=== PATIENT | male | born 1965 | race African-American/Black ===

== ENCOUNTER 2022-10-07 22:37 | Observation (INO) | payer BC ==
[~2022-10-07 22:37] MED LIST: Iopamidol-370 76% 500 ML MDV (1 ML CHARGE) ONE
[2022-10-07 23:07] LABS: #Monocytes 0.4 thou/uL (0.11-0.59); %Basophils 0.2 % (0.0-1.0); %Eosinophils 0.2 % (0.0-10.0); %Lymphocytes 18.3 % (21.0-51.0); %Neutrophils 77.1 % (42.0-75.0); Hematocrit 46.8 % (42.0-52.0); Hemoglobin 15.4 g/dL (14.0-18.0); Mean Corpuscular HGB CONC 32.9 g/dL (32.0-36.0); Mean Corpuscular Hemoglobin 32.3 pg (27.0-31.0); Mean Corpuscular Volume 98.1 fl (78.0-98.0); Mean Platelet Volume 9.6 fL (7.4-10.4); Platelet Count 165 10x3/uL (130-400); RBC Distribution Width 12.7 % (11.5-14.5); Red Blood Cell (RBC) Count 4.77 mill/uL (4.70-6.10); White Blood Cell (WBC) Count 9.1 10x3/uL (4.8-10.8)
[2022-10-07] MEDS ORDERED: levETIRAcetam 500 MG/5 ML VIAL ONE (23:11)
[2022-10-07] MEDS ORDERED: dilTIAZem 25 MG/5 ML VIAL ONE (23:11)
[2022-10-07] MEDS ORDERED: dilTIAZem 125 MG/25 ML SDV ONE (23:11)
[2022-10-07 23:34] LABS: ALT (SGPT) 20 U/L (8-55); AST (SGOT) 20 U/L (5-34); Albumin 4.9 g/dL (3.5-5.0); Alkaline Phosphatase 74 U/L (40-110); Anion Gap 23 mmol/L (10-20); BUN (Urea Nitrogen) 17 mg/dL (8.4-25.7); Bilirubin, Total 0.8 mg/dL (0.2-1.2); Calc. Creatinine Clearance 0 mL/min (70-130); Calcium 9.7 mg/dL (7.8-10.44); Carbon Dioxide 14 mmol/L (22-29); Chloride 107 mmol/L (98-107); Estimated GFR 47; Globulin 3.3 g/dL (2.4-3.5); Glucose 161 mg/dL (70-105); Potassium 3.4 mmol/L (3.5-5.1); Protein, Total 8.2 g/dL (6.0-8.3); Sodium 141 mmol/L (136-145)
[2022-10-07 23:43] LABS: Acetaminophen Less than 10 mcg/mL (10.0-30.0); Alcohol Less than 10.0 mg/dL (Less than 10); Magnesium 1.7 mg/dL (1.6-2.6); Salicylate Less than 8.0 mg/dL (15.0-30.0)
[2022-10-07 23:44] LABS: INR-International Normal Ratio 1.1; Prothrombin Time 14.9 sec (12.0-14.7)
[2022-10-07 23:48] LABS: Troponin I 0.141 ng/mL (< 0.028)
[2022-10-08] MEDS ORDERED: HumaLOG 300 UNITS/3 ML VIAL SC PRN ×2 (02:25)
[2022-10-08] MEDS ORDERED: Acetaminophen 650 MG Suppository PR PRN (02:25)
[2022-10-08] MEDS ORDERED: Dextrose 50% Abboject 50 ML SYRINGE SLOW IVP PRN (02:25)
[2022-10-08] MEDS ORDERED: Glucagon 1 MG/ML KIT IM PRN (02:25)
[2022-10-08] MEDS ORDERED: Acetaminophen 325 MG TAB PO PRN (02:25)
[2022-10-08] MEDS ORDERED: Ondansetron ODT 4 MG TAB PO PRN (02:25)
[2022-10-08] MEDS ORDERED: Dextrose 5% in Water 1,000 ML IV PRN (02:25)
[2022-10-08] MEDS ORDERED: Ondansetron PF 4 MG/2 ML Vial IVP PRN (02:25)
[2022-10-08] MEDS ORDERED: Lorazepam 2 MG/ML VIAL SLOW IVP PRN (02:25)
[2022-10-08 03:13] LABS: Troponin I 0.137 ng/mL (< 0.028)
[2022-10-08] MEDS: Sodium Chloride 0.9% 1,000 ML IV SCH ×2 (04:03→13:16)
[2022-10-08 04:51] LABS: #Monocytes 0.4 thou/uL (0.11-0.59); #Neutrophils 5.9 thou/uL (1.40-6.50); %Basophils 0.4 % (0.0-1.0); %Eosinophils 0.4 % (0.0-10.0); %Lymphocytes 16.8 % (21.0-51.0); %Monocytes 5.4 % (0.0-10.0); %Neutrophils 76.7 % (42.0-75.0); Hematocrit 43.7 % (42.0-52.0); Hemoglobin 14.5 g/dL (14.0-18.0); Mean Corpuscular HGB CONC 33.2 g/dL (32.0-36.0); Mean Corpuscular Hemoglobin 31.8 pg (27.0-31.0); Mean Corpuscular Volume 95.8 fl (78.0-98.0); Mean Platelet Volume 9.7 fL (7.4-10.4); Platelet Count 151 10x3/uL (130-400); RBC Distribution Width 12.8 % (11.5-14.5); Red Blood Cell (RBC) Count 4.56 mill/uL (4.70-6.10); White Blood Cell (WBC) Count 7.7 10x3/uL (4.8-10.8)
[2022-10-08 05:24] LABS: Anion Gap 12 mmol/L (10-20); BUN (Urea Nitrogen) 14 mg/dL (8.4-25.7); Calc. Creatinine Clearance 0 mL/min (70-130); Calcium 8.9 mg/dL (7.8-10.44); Carbon Dioxide 22 mmol/L (22-29); Chloride 108 mmol/L (98-107); Estimated GFR 70; Glucose 93 mg/dL (70-105); Magnesium 1.9 mg/dL (1.6-2.6); Potassium 3.4 mmol/L (3.5-5.1); Sodium 139 mmol/L (136-145)
[2022-10-08 05:47] LABS: Troponin I 0.138 ng/mL (< 0.028)
[2022-10-08 06:25] VITALS: BMI 23.5
[2022-10-08] MEDS ORDERED: Electrolyte Replacement Protocol 1 EACH FS SCH (07:45)
[2022-10-08] MEDS ORDERED: Potassium Chloride 20 MEQ TAB PO SCH (08:00)
[2022-10-08] MEDS ORDERED: Magnevist 469MG/ML 20 ML VIAL ONE (08:58)
[2022-10-08] MEDS ORDERED: levETIRAcetam 500 MG/5 ML VIAL SLOW IVP SCH (09:00)
[2022-10-08] MEDS ORDERED: Magnesium 2 GM/50 ML(in water) 2 GM in Premix Bag 1 BAG IVPB SCH (09:00)
[2022-10-08 15:39] VITALS: BP 113/80; TEMP 97.8
== END 2022-10-08 17:45 | disposition home or self-care (01) ==
LOC: ERS 22:37 → 2SE 10-08 02:15
PROVIDERS: ADMIT Student in an Organized Health Care Education/Training Program; ATTEND Internal Medicine
DX: R77.8 Other specified abnormalities of plasma proteins (principal); G40.909 Epilepsy, unspecified, not intractable, without status epilepticus; E11.9 Type 2 diabetes mellitus without complications; I69.320 Aphasia following cerebral infarction; F17.210 Nicotine dependence, cigarettes, uncomplicated; N17.9 Acute kidney failure, unspecified; I12.9 Hypertensive chronic kidney disease with stage 1 through stage 4 chronic kidney disease, or unspecified chronic kidney disease; I48.91 Unspecified atrial fibrillation; N18.2 Chronic kidney disease, stage 2 (mild); E11.22 Type 2 diabetes mellitus with diabetic chronic kidney disease; E87.6 Hypokalemia; Z79.01 Long term (current) use of anticoagulants; Z91.014 Allergy to mammalian meats; Z79.899 Other long term (current) drug therapy
CPT/HCPCS: 36415; 36416; 70496; 70498; 70553; 71045; 80048; 80053; 80307; 83735; 84443; 84484; 85025; 85610; 85730; 93005; 94760; 96375; 96376; A9579; G0378; J1815; J1953; J3475; J7050; Q9967

== ENCOUNTER 2023-09-05 12:21 | Inpatient (IN) | payer BC, SELFPAY ==
[2023-09-05 13:55] LABS: #Basophils Less than 0.03 10x3/uL (0.0-0.2); %Basophils 0.2 % (0.0-1.0); %Eosinophils 2.4 % (0.0-10.0); %Lymphocytes 28.6 % (21.0-51.0); %Monocytes 8.2 % (0.0-10.0); %Neutrophils 60.4 % (42.0-75.0); Hematocrit 39.3 % (42.0-52.0); Hemoglobin 13.1 g/dL (14.0-18.0); Mean Corpuscular HGB CONC 33.3 g/dL (32.0-36.0); Mean Corpuscular Hemoglobin 33.4 pg (27.0-31.0); Mean Corpuscular Volume 100.3 fL (78.0-98.0); Mean Platelet Volume 9.4 fL (7.4-10.4); Platelet Count 177 10x3/uL (130-400); RBC Distribution Width 14.5 % (11.5-14.5); Red Blood Cell (RBC) Count 3.92 mill/uL (4.70-6.10)
[2023-09-05 14:12] LABS: ALT (SGPT) 18 U/L (8-55); AST (SGOT) 16 U/L (5-34); Albumin 4.1 g/dL (3.5-5.0); Alkaline Phosphatase 62 U/L (40-110); Anion Gap 14 mmol/L (10-20); BUN (Urea Nitrogen) 14 mg/dL (8.4-25.7); Bilirubin, Total 0.5 mg/dL (0.2-1.2); Calc. Creatinine Clearance 0 mL/min (70-130); Calcium 9.2 mg/dL (7.8-10.44); Carbon Dioxide 21 mmol/L (22-29); Chloride 111 mmol/L (98-107); Estimated GFR 72; Globulin 3.2 g/dL (2.4-3.5); Glucose 152 mg/dL (70-105); Potassium 3.3 mmol/L (3.5-5.1); Protein, Total 7.3 g/dL (6.0-8.3); Sodium 143 mmol/L (136-145)
[2023-09-05 14:19] LABS: Troponin I 0.153 ng/mL (< 0.028)
[2023-09-05] MEDS ORDERED: Aspirin Chewable 81 MG TAB ONE (15:28)
[2023-09-05] MEDS ORDERED: Furosemide 40 MG (4 mL) VIAL ONE (16:07)
[2023-09-05] MEDS ORDERED: Acetaminophen 650 MG Suppository PR PRN (16:14)
[2023-09-05] MEDS ORDERED: Senokot S 8.6-50 MG TAB PO PRN (16:14)
[2023-09-05] MEDS ORDERED: Ondansetron PF 4 MG/2 ML Vial IVP PRN (16:14)
[2023-09-05] MEDS ORDERED: Ondansetron ODT 4 MG TAB PO PRN (16:14)
[2023-09-05] MEDS ORDERED: Acetaminophen 325 MG TAB PO PRN (16:14)
[2023-09-05 17:21] LABS: Magnesium 1.5 mg/dL (1.6-2.6); Phosphorus 3.1 mg/dL (2.3-4.7)
[2023-09-05 17:25] LABS: Troponin I 0.155 ng/mL (< 0.028)
[2023-09-05 18:02] VITALS: BMI 25.0
[2023-09-05] MEDS: Potassium Chloride 20 MEQ TAB PO SCH (20:58)
[2023-09-05] MEDS: dilTIAZem CD 120 MG CAP PO SCH (20:58)
[2023-09-05] MEDS: Doxepin HCl 25 MG CAP PO SCH (20:59)
[2023-09-05] MEDS: Divalproex Sodium 250 MG ER.TAB PO SCH (20:59)
[2023-09-05] MEDS: Atorvastatin Calcium 40 MG TAB PO SCH (20:59)
[2023-09-05] MEDS: Apixaban 5 MG TAB PO SCH (20:59)
[2023-09-05] MEDS: Metoprolol Tartrate 25 MG TAB PO SCH (20:59)
[2023-09-05] MEDS: Famotidine 20 MG TAB PO SCH (20:59)
[2023-09-05] MEDS: levETIRAcetam 500 MG TAB PO SCH (21:00)
[2023-09-05] MEDS: Nicotine 21 MG PATCH TD PRN (21:26)
[2023-09-06 05:20] LABS: #Basophils Less than 0.03 10x3/uL (0.0-0.2); %Basophils 0.2 % (0.0-1.0); %Lymphocytes 42.2 % (21.0-51.0); %Monocytes 9.6 % (0.0-10.0); %Neutrophils 44.8 % (42.0-75.0); Hematocrit 34.3 % (42.0-52.0); Hemoglobin 11.6 g/dL (14.0-18.0); Mean Corpuscular HGB CONC 33.8 g/dL (32.0-36.0); Mean Corpuscular Hemoglobin 33.4 pg (27.0-31.0); Mean Corpuscular Volume 98.8 fL (78.0-98.0); Mean Platelet Volume 9.2 fL (7.4-10.4); Platelet Count 152 10x3/uL (130-400); RBC Distribution Width 14.3 % (11.5-14.5); Red Blood Cell (RBC) Count 3.47 mill/uL (4.70-6.10)
[2023-09-06] MEDS: Furosemide 100 MG (10 mL) VIAL SLOW IVP SCH (05:31)
[2023-09-06 05:38] LABS: ALT (SGPT) 15 U/L (8-55); AST (SGOT) 12 U/L (5-34); Albumin 3.4 g/dL (3.5-5.0); Alkaline Phosphatase 48 U/L (40-110); Anion Gap 15 mmol/L (10-20); BUN (Urea Nitrogen) 13 mg/dL (8.4-25.7); Bilirubin, Total 0.6 mg/dL (0.2-1.2); Calc. Creatinine Clearance 84 mL/min (70-130); Calcium 8.6 mg/dL (7.8-10.44); Carbon Dioxide 21 mmol/L (22-29); Chloride 113 mmol/L (98-107); Estimated GFR 86; Globulin 2.3 g/dL (2.4-3.5); Glucose 95 mg/dL (70-105); Potassium 3.6 mmol/L (3.5-5.1); Protein, Total 5.7 g/dL (6.0-8.3); Sodium 145 mmol/L (136-145)
[2023-09-06] MEDS ORDERED: Enoxaparin 40 MG (0.4 mL) SYRINGE SC SCH (09:00)
[2023-09-06 09:35] LABS: Magnesium 1.4 mg/dL (1.6-2.6)
[2023-09-06] MEDS: Magnesium Sulfate In Water 4 GM in Premix 1 BAG IVPB SCH (11:34)
[2023-09-06] MEDS: Potassium Chloride 20 MEQ TAB PO SCH (20:21)
[2023-09-07 04:17] LABS: #Basophils Less than 0.03 10x3/uL (0.0-0.2); %Basophils 0.2 % (0.0-1.0); %Eosinophils 2.9 % (0.0-10.0); %Lymphocytes 43.2 % (21.0-51.0); %Monocytes 9.5 % (0.0-10.0); Hematocrit 36.1 % (42.0-52.0); Hemoglobin 12.5 g/dL (14.0-18.0); Mean Corpuscular HGB CONC 34.6 g/dL (32.0-36.0); Mean Corpuscular Hemoglobin 33.4 pg (27.0-31.0); Mean Corpuscular Volume 96.5 fL (78.0-98.0); Mean Platelet Volume 9.3 fL (7.4-10.4); Platelet Count 173 10x3/uL (130-400); RBC Distribution Width 14.3 % (11.5-14.5); Red Blood Cell (RBC) Count 3.74 mill/uL (4.70-6.10)
[2023-09-07 04:45] LABS: Anion Gap 13 mmol/L (10-20); BUN (Urea Nitrogen) 15 mg/dL (8.4-25.7); Calc. Creatinine Clearance 70 mL/min (70-130); Calcium 8.6 mg/dL (7.8-10.44); Carbon Dioxide 24 mmol/L (22-29); Chloride 110 mmol/L (98-107); Estimated GFR 69; Glucose 155 mg/dL (70-105); Magnesium 2.1 mg/dL (1.6-2.6); Potassium 3.6 mmol/L (3.5-5.1); Sodium 143 mmol/L (136-145)
[2023-09-07] MEDS: Potassium Chloride 20 MEQ TAB PO SCH (08:38)
[2023-09-07] MEDS: Furosemide 40 MG TAB PO SCH (08:40)
[2023-09-07 15:47] VITALS: TEMP 96.3
[2023-09-07 19:07] VITALS: BP 113/67
[2023-09-07] MEDS ORDERED: levETIRAcetam 500 MG TAB PO SCH (21:00)
[2023-09-07] MEDS ORDERED: Zonisamide 100 MG CAP PO SCH (21:00)
[2023-09-07] MEDS ORDERED: Lacosamide 50 mg Tablet PO SCH (21:00)
[2023-09-08] MEDS ORDERED: Aspirin 81 mg Enteric Coated Tablet PO SCH (09:00)
== END 2023-09-07 18:40 | disposition home or self-care (01) | DRG 293 ==
LOC: ERS 12:21 → SUATTDRO 12:21 → ERHOLD 16:16 → 2NO 17:22
PROVIDERS: ADMIT Family Medicine; ATTEND Internal Medicine
DX: I50.43 Acute on chronic combined systolic (congestive) and diastolic (congestive) heart failure (principal); R79.89 Other specified abnormal findings of blood chemistry; E11.9 Type 2 diabetes mellitus without complications; G47.33 Obstructive sleep apnea (adult) (pediatric); G40.909 Epilepsy, unspecified, not intractable, without status epilepticus; I48.91 Unspecified atrial fibrillation; E83.42 Hypomagnesemia; E87.6 Hypokalemia; Z79.84 Long term (current) use of oral hypoglycemic drugs; Z91.014 Allergy to mammalian meats; Z79.899 Other long term (current) drug therapy
CPT/HCPCS: 36415; 71045; 80048; 80053; 83735; 83880; 84100; 84484; 85025; 93005; J1940; J3475

== ENCOUNTER 2023-09-08 22:59 | Inpatient (IN) | payer OTHER, SELFPAY ==
[2023-09-08 23:42] LABS: #Basophils Less than 0.03 10x3/uL (0.0-0.2); %Basophils 0.3 % (0.0-1.0); %Eosinophils 2.4 % (0.0-10.0); %Lymphocytes 25.8 % (21.0-51.0); %Monocytes 7.6 % (0.0-10.0); %Neutrophils 63.7 % (42.0-75.0); Hematocrit 41.8 % (42.0-52.0); Mean Corpuscular HGB CONC 33.5 g/dL (32.0-36.0); Mean Corpuscular Hemoglobin 33.3 pg (27.0-31.0); Mean Corpuscular Volume 99.3 fL (78.0-98.0); Platelet Count 191 10x3/uL (130-400); RBC Distribution Width 13.9 % (11.5-14.5); Red Blood Cell (RBC) Count 4.21 mill/uL (4.70-6.10)
[2023-09-09 00:48] LABS: ALT (SGPT) 14 U/L (8-55); AST (SGOT) 13 U/L (5-34); Albumin 4.2 g/dL (3.5-5.0); Alkaline Phosphatase 61 U/L (40-110); Anion Gap 12 mmol/L (10-20); BUN (Urea Nitrogen) 18 mg/dL (8.4-25.7); Bilirubin, Total 0.8 mg/dL (0.2-1.2); Calc. Creatinine Clearance 0 mL/min (70-130); Calcium 9.2 mg/dL (7.8-10.44); Carbon Dioxide 24 mmol/L (22-29); Chloride 107 mmol/L (98-107); Estimated GFR 59; Globulin 3.2 g/dL (2.4-3.5); Glucose 219 mg/dL (70-105); Potassium 3.4 mmol/L (3.5-5.1); Protein, Total 7.4 g/dL (6.0-8.3); Sodium 140 mmol/L (136-145)
[2023-09-09 02:44] LABS: Magnesium 1.8 mg/dL (1.6-2.6)
[2023-09-09] MEDS ORDERED: Potassium Chloride 20 MEQ TAB ONE (02:45)
[2023-09-09] MEDS ORDERED: Cephalexin 250 MG CAP ONE (02:45)
[2023-09-09] MEDS ORDERED: Aspirin Chewable 81 MG TAB ONE (02:46)
[2023-09-09] MEDS ORDERED: dilTIAZem 25 MG/5 ML VIAL ONE (02:46)
[2023-09-09 04:03] LABS: Troponin I 0.141 ng/mL (< 0.028)
[2023-09-09] MEDS ORDERED: Ondansetron ODT 4 MG TAB PO PRN (05:25)
[2023-09-09] MEDS ORDERED: Acetaminophen 325 MG TAB PO PRN (05:25)
[2023-09-09] MEDS ORDERED: Acetaminophen 650 MG Suppository PR PRN (05:25)
[2023-09-09] MEDS ORDERED: Ondansetron PF 4 MG/2 ML Vial IVP PRN (05:25)
[2023-09-09 05:34] VITALS: BMI 22.8
[2023-09-09 06:56] LABS: Troponin I 0.146 ng/mL (< 0.028)
[2023-09-09] MEDS: Multivit, Therapeutic 1 TAB PO SCH (08:42)
[2023-09-09] MEDS: Apixaban 5 MG TAB PO SCH (08:42)
[2023-09-09] MEDS: Lacosamide 50 mg Tablet PO SCH (08:42)
[2023-09-09] MEDS: metFORMIN XR 500 MG ER.TAB PO SCH (08:42)
[2023-09-09] MEDS: Aspirin 81 mg Enteric Coated Tablet PO SCH (08:42)
[2023-09-09] MEDS: Famotidine 20 MG TAB PO SCH (08:42)
[2023-09-09] MEDS: levETIRAcetam 500 mg/5 ml Oral Solution PO SCH (08:42)
[2023-09-09] MEDS: Furosemide 40 MG TAB PO SCH (08:42)
[2023-09-09] MEDS: Folic Acid 1 MG TAB PO SCH (08:42)
[2023-09-09] MEDS: Famotidine/PF 20 mg/2ml Vial SLOW IVP SCH (08:43)
[2023-09-09 09:04] LABS: #Basophils Less than 0.03 10x3/uL (0.0-0.2); %Basophils 0.2 % (0.0-1.0); %Eosinophils 2.2 % (0.0-10.0); %Lymphocytes 26.2 % (21.0-51.0); %Monocytes 9.1 % (0.0-10.0); %Neutrophils 61.8 % (42.0-75.0); Hemoglobin 12.7 g/dL (14.0-18.0); Mean Corpuscular HGB CONC 33.4 g/dL (32.0-36.0); Mean Corpuscular Hemoglobin 32.8 pg (27.0-31.0); Mean Corpuscular Volume 98.2 fL (78.0-98.0); Mean Platelet Volume 9.1 fL (7.4-10.4); Platelet Count 175 10x3/uL (130-400); Red Blood Cell (RBC) Count 3.87 mill/uL (4.70-6.10)
[2023-09-09 09:20] LABS: Anion Gap 10 mmol/L (10-20); BUN (Urea Nitrogen) 19 mg/dL (8.4-25.7); Calc. Creatinine Clearance 67 mL/min (70-130); Calcium 8.8 mg/dL (7.8-10.44); Carbon Dioxide 24 mmol/L (22-29); Chloride 109 mmol/L (98-107); Estimated GFR 73; Glucose 136 mg/dL (70-105); Potassium 3.8 mmol/L (3.5-5.1); Sodium 139 mmol/L (136-145)
[2023-09-09] MEDS: Gabapentin 100 MG CAP PO SCH (14:14)
[2023-09-09] MEDS: Furosemide 40 MG (4 mL) VIAL SLOW IVP SCH (14:15)
[2023-09-09] MEDS ORDERED: Lidocaine 2% 20 ml MDV SC SCH (15:00)
[2023-09-09] MEDS: dilTIAZem CD 120 MG CAP PO SCH (20:36)
[2023-09-10 05:06] LABS: #Basophils Less than 0.03 10x3/uL (0.0-0.2); %Basophils 0.2 % (0.0-1.0); %Eosinophils 2.2 % (0.0-10.0); %Lymphocytes 28.6 % (21.0-51.0); %Monocytes 8.5 % (0.0-10.0); %Neutrophils 60.1 % (42.0-75.0); Hematocrit 40.1 % (42.0-52.0); Hemoglobin 13.8 g/dL (14.0-18.0); Mean Corpuscular HGB CONC 34.4 g/dL (32.0-36.0); Mean Corpuscular Hemoglobin 33.7 pg (27.0-31.0); Mean Corpuscular Volume 97.8 fL (78.0-98.0); Mean Platelet Volume 9.2 fL (7.4-10.4); Platelet Count 196 10x3/uL (130-400); RBC Distribution Width 13.5 % (11.5-14.5)
[2023-09-10 05:12] LABS: Anion Gap 13 mmol/L (10-20); BUN (Urea Nitrogen) 20 mg/dL (8.4-25.7); Calc. Creatinine Clearance 69 mL/min (70-130); Calcium 9.3 mg/dL (7.8-10.44); Carbon Dioxide 23 mmol/L (22-29); Chloride 105 mmol/L (98-107); Estimated GFR 75; Glucose 112 mg/dL (70-105); Potassium 3.8 mmol/L (3.5-5.1); Sodium 137 mmol/L (136-145); Uric Acid 6.8 mg/dL (3.5-7.2)
[2023-09-10] MEDS: Zonisamide 100 MG CAP PO SCH (14:06)
[2023-09-10 16:26] LABS: Amphetamine Not Detected (NotDetected); Barbiturates Screen Not Detected (NotDetected); Benzodiazepine Screen Not Detected (NotDetected); Cocaine Metabolite Screen Not Detected (NotDetected); Methadone Not Detected (NotDetected); Methamphetamine Not Detected (NotDetected); Opiate Screen Detected (NotDetected); Oxycodone Screen Not Detected (NotDetected); Phencyclidine (PCP) Not Detected (NotDetected); THC/Cannabinoid Screen Not Detected (NotDetected); Tricyclic Screen Not Detected (NotDetected)
[2023-09-10] MEDS: Atorvastatin Calcium 40 MG TAB PO SCH (20:21)
[2023-09-11 04:45] LABS: Actual Bicarbonate (HCO3v) 22.6 mEq/L (22-28); Base Excess -2.4 mEq/L (-2.0 to +3.0); Calcium, Ionized (venous) 1.16 mmol/L (1.16-1.32); Chloride (VBG) 98 mmol/L (98-106); Hematocrit-VBG 46 % (42.0-52.0); Hemoglobin (Hb) 15.5 g/dL (13.1-17.2); Potassium (VBG) 3.56 mmol/L (3.70-5.30); Sodium 138 mmol/L (133-146); pH (venous) 7.371 (7.32-7.43)
[2023-09-11] MEDS ORDERED: Non-Formulary Item 1 EACH (Atorvastatin Calcium [Atorvastatin Calcium] 80 MG Tablet) PO SCH (09:00)
[2023-09-11 16:18] VITALS: BP 115/70; TEMP 97.5
[2023-09-12] MEDS ORDERED: Furosemide 40 MG TAB PO SCH (09:00)
== END 2023-09-11 18:16 | disposition home or self-care (01) | DRG 309 ==
LOC: ERS 22:59 → 2SW 09-09 02:38 → OBSVTOIN 09-11 17:06
PROVIDERS: ADMIT Student in an Organized Health Care Education/Training Program; ATTEND Family Medicine
DX: I48.91 Unspecified atrial fibrillation (principal); I50.32 Chronic diastolic (congestive) heart failure; L03.115 Cellulitis of right lower limb; G40.909 Epilepsy, unspecified, not intractable, without status epilepticus; I08.1 Rheumatic disorders of both mitral and tricuspid valves; I69.820 Aphasia following other cerebrovascular disease; E11.9 Type 2 diabetes mellitus without complications; Z79.01 Long term (current) use of anticoagulants; Z79.84 Long term (current) use of oral hypoglycemic drugs; Z79.899 Other long term (current) drug therapy; Z79.82 Long term (current) use of aspirin
CPT/HCPCS: 36415; 36416; 70450; 71045; 80048; 80306; 82805; 83735; 83880; 84484; 84550; 85025; 93005; 93970; 96374; 96376; G0378; J1940